=== PATIENT | male | born 1980 | race Caucasian/White ===

== ENCOUNTER 2019-02-10 22:23 | Emergency (ER) | payer SELFPAY ==
[~2019-02-10] VITALS: Ht 175.3 cm; Wt 59.0 kg
[2019-02-10 22:34] VITALS: BP 114/74
[2019-02-10] MEDS ORDERED: cefTRIAXone SOD 1,000 MG VL IM ONE (23:45)
[2019-02-10] MEDS ORDERED: ACETAMINOPHEN/CODEINE#3 (300/30mg) TAB PO ONE (23:45)
[2019-02-10] MEDS ORDERED: AMOXICILLIN/CLAVUL 875 MG TAB PO ONE (23:45)
[2019-02-10] MEDS ORDERED: methylPREDNISolone SOD SUCC 125 MG/2 ML VL IM ONE (23:45)
== END 2019-02-11 00:26 | disposition home or self-care (01) ==
LOC: ER 22:31
DX: K04.7 Periapical abscess without sinus (principal); F17.210 Nicotine dependence, cigarettes, uncomplicated
CPT/HCPCS: 96372; 99283; J0696; J2930

== ENCOUNTER 2021-08-17 17:12 | Emergency (ER) | payer MEDICAID ==
[~2021-08-17] VITALS: Ht 172.7 cm; Wt 61.2 kg
[2021-08-17 21:51] VITALS: BP 130/100
== END 2021-08-17 22:28 | disposition home or self-care (01) ==
LOC: ER 17:12
DX: K08.89 Other specified disorders of teeth and supporting structures (principal); F15.10 Other stimulant abuse, uncomplicated

== ENCOUNTER 2022-08-19 16:25 | Emergency (ER) | payer MEDICAID | END 2022-08-19 17:00 | disposition left against medical advice (07) | LOC: ER 16:25 | DX: R06.02 Shortness of breath (principal); Z53.21 Procedure and treatment not carried out due to patient leaving prior to being seen by health care provider ==

== ENCOUNTER 2023-08-14 23:41 | Inpatient (IN) | payer MEDICAID ==
[~2023-08-14] VITALS: Ht 160 cm; Wt 64.0 kg
[2023-08-15] VITALS (7 sets, daily range): BP systolic 120–122; BP diastolic 78–83; PULSE 75–95; RESP 12–21; TEMP 97.9–98.2; O2SAT 90–96
[2023-08-15] MEDS ORDERED: ALBUTEROL SULF 2.5 MG/0.5ML(0.5%) NEB SOLN ONE (00:13)
[2023-08-15] MEDS ORDERED: IPRATROPIUM BROM 0.5 MG/2.5ML INH SOL ONE (00:13)
[2023-08-15] MEDS ORDERED: IPRATROPIUM BROM 0.5 MG/2.5ML INH SOL NEB ONE (00:15)
[2023-08-15] MEDS ORDERED: ALBUTEROL SULF 2.5 MG/0.5ML(0.5%) NEB SOLN NEB ONE (00:15)
[2023-08-15] MEDS ORDERED: methylPREDNISolone SOD SUCC 125 MG/2 ML VL IM ONE (00:15)
[2023-08-15 01:01] LABS: Basophils # (auto) 0 10 ^3/uL (0-0.2); Eosinophils # (auto) 0 10 ^3/uL (0-0.8); Hemoglobin 12.3 g/dL (13.5-17.5); Monocytes # (auto) 0.9 10 ^3/uL (0-1.3); Neutrophils # (auto) 6.6 10 ^3/uL (1.6-8.6)
[2023-08-15 01:03] LABS: Basophils % (auto) 0.1 % (0.0-2.0); Hematocrit 36.4 % (41.0-53.0); Lymphocytes # (auto) 0.7 10 ^3/uL (0.4-5.4); Mean Corpuscular Hemoglobin 25.9 pg (28.0-32.0); Mean Corpuscular Hgb Conc. 33.8 g/dL (32.0-36.0); Mean Corpuscular Volume 76.5 fL (80.0-100.0); Monocytes % (auto) 10.9 % (0.0-12.0); Red Blood Cells 4.75 10^6/uL (4.5-5.90); Red Cell Distribution Width 14.4 % (11.8-14.3); White Blood Cell 8.1 10^3/uL (4.4-10.8)
[2023-08-15 01:33] LABS: Alanine Aminotransferase 15 U/L (7-40); Albumin 4.4 g/dL (3.2-4.8); Alkaline Phosphatase 93 U/L (46-116); Anion Gap 9 (5-15); Aspartate Aminotransferase 13 U/L (13-40); BUN/Creatinine Ratio 15.9 (10.0-20.0); Bilirubin, Total 0.5 mg/dL (0.2-1.0); Blood Urea Nitrogen 10 mg/dL (9-23); Carbon Dioxide 23 mmol/L (20-30); Chloride 99 mmol/L (98-107); Glucose 140 mg/dL (74-106); Potassium 3.5 mmol/L (3.5-5.1); Sodium 131 mmol/L (136-145); Total Protein 6.8 g/dL (5.7-8.2)
[2023-08-15 01:35] LABS: Partial Thromboplastin Time 60.7 SEC (24.5-34.5); Prothrombin Time 10.5 sec (9.3-11.8)
[2023-08-15] MEDS ORDERED: IOHEXOL 350 MG/ML 100ML IJ ONE (01:43)
[2023-08-15] MEDS ORDERED: ENOXAPARIN SOD 80 MG/0.8ML SYRINGE SC ONE (01:45)
[2023-08-15] MEDS ORDERED: IPRATROPIUM BROM 0.5 MG/2.5ML INH SOL NEB PRN (07:45)
[2023-08-15] MEDS ORDERED: ACETAMINOPHEN 325 MG TAB PO PRN (07:45)
[2023-08-15] MEDS ORDERED: ALBUTEROL SULF 2.5 MG/0.5ML(0.5%) NEB SOLN NEB PRN (07:45)
[2023-08-15] MEDS ORDERED: ONDANSETRON HCL 4 MG/2 ML VIAL IV PRN (07:45)
[2023-08-15] MEDS: cefTRIAXone 1GM/50ML D5W 50 ML IV SCH (10:13)
[2023-08-15] MEDS: AZITHROMYCIN 500MG/ 250ML 250 ML IV SCH (10:59)
[2023-08-15] MEDS ORDERED: LORazepam 2MG/ML-1ML VIAL IV ONE (13:45)
[2023-08-16] MEDS ORDERED: PROMETHAZINE HCL 25 MG/ML 1ML IV ONE ×2 (01:15→01:30)
[2023-08-16 05:00] VITALS: BP 139/83; PULSE 83; RESP 20; TEMP 97.9; O2SAT 100
[2023-08-16 06:08] LABS: Basophils # (auto) 0 10 ^3/uL (0-0.2); Eosinophils # (auto) 0 10 ^3/uL (0-0.8); Monocytes # (auto) 1.1 10 ^3/uL (0-1.3); Neutrophils # (auto) 7.1 10 ^3/uL (1.6-8.6); White Blood Cell 9.1 10^3/uL (4.4-10.8)
[2023-08-16 06:12] LABS: Basophils % (auto) 0.2 % (0.0-2.0); Hematocrit 38.3 % (41.0-53.0); Hemoglobin 13.1 g/dL (13.5-17.5); Lymphocytes # (auto) 0.9 10 ^3/uL (0.4-5.4); Lymphocytes % (auto) 10.2 % (10.0-50.0); Mean Corpuscular Hemoglobin 25.9 pg (28.0-32.0); Mean Corpuscular Hgb Conc. 34.3 g/dL (32.0-36.0); Mean Corpuscular Volume 75.7 fL (80.0-100.0); Monocytes % (auto) 12.1 % (0.0-12.0); Neutrophils % (auto) 77.5 % (37.0-80.0); Red Blood Cells 5.06 10^6/uL (4.5-5.90); Red Cell Distribution Width 14.5 % (11.8-14.3)
[2023-08-16 06:19] LABS: Chloride 100 mmol/L (98-107); Potassium 3.5 mmol/L (3.5-5.1); Sodium 139 mmol/L (136-145)
[2023-08-16 06:20] LABS: Anion Gap 13 (5-15); Calcium 9.9 mg/dL (8.5-10.1); Carbon Dioxide 26 mmol/L (20-30)
[2023-08-16 06:25] LABS: BUN/Creatinine Ratio 25.3 (10.0-20.0); Blood Urea Nitrogen 20 mg/dL (9-23); Glucose 138 mg/dL (74-106)
[2023-08-16 06:40] VITALS: O2SAT 94
[2023-08-16 08:00] VITALS: BP 129/75; PULSE 80; RESP 18; TEMP 98.1; O2SAT 95
[2023-08-16 08:30] VITALS: BP 114/50; PULSE 93; RESP 16; TEMP 98.2
[2023-08-16] MEDS: cefTRIAXone 1GM/50ML D5W 50 ML IV SCH (09:10)
[2023-08-16] MEDS: AZITHROMYCIN 500MG/ 250ML 250 ML IV SCH (10:01)
[2023-08-16] MEDS ORDERED: ALBUAER3 IN (11:09)
[2023-08-16] MEDS ORDERED: DOXY100C4 PO (11:09)
[2023-08-16 12:00] VITALS: BP 145/62; PULSE 72; RESP 18; TEMP 97.9; O2SAT 97
[2023-08-16 12:23] VITALS: BP 145/62; PULSE 72; RESP 18; TEMP 97.9; O2SAT 97
[2023-08-18 09:23] LABS: Hepatitis B Surface Antigen Negative (Negative)
[2023-08-18 11:39] LABS: Hepatitis C Antibody Reactive (Negative)
== END 2023-08-16 15:40 | disposition home or self-care (01) | DRG 137 ==
LOC: EDUNIT# 23:41 → ER 23:41 → EDBD 23:41 → OVERFLOW 08-15 07:38 → EAST 08-15 16:25
PROVIDERS: ADMIT Internal Medicine; ATTEND Internal Medicine
DX: J15.69 Pneumonia due to other Gram-negative bacteria (principal); J96.01 Acute respiratory failure with hypoxia; F17.210 Nicotine dependence, cigarettes, uncomplicated; R79.89 Other specified abnormal findings of blood chemistry; Z60.2 Problems related to living alone; J44.0 Chronic obstructive pulmonary disease with (acute) lower respiratory infection
CPT/HCPCS: 36415; 71275; 80048; 80053; 83880; 84484; 85025; 85379; 85610; 85730; 86803; 87340; 94640; 96372; 99291; G0378; J2405

== ENCOUNTER 2023-11-22 05:21 | Inpatient (IN) | payer MEDICAID ==
[~2023-11-22] VITALS: Ht 172.7 cm; Wt 77.1 kg
[~2023-11-22 05:21] MED LIST: ALBUAER3 IN; DOXY100C4 PO
[2023-11-22 05:53] LABS: Basophils # (auto) 0.1 10 ^3/uL (0-0.2); Basophils % (auto) 0.2 % (0.0-2.0); Eosinophils # (auto) 0 10 ^3/uL (0-0.8); Hematocrit 36.8 % (41.0-53.0); Lymphocytes # (auto) 0.8 10 ^3/uL (0.4-5.4); Lymphocytes % (auto) 2.4 % (10.0-50.0); Mean Corpuscular Hemoglobin 24.9 pg (28.0-32.0); Mean Corpuscular Hgb Conc. 32.6 g/dL (32.0-36.0); Mean Corpuscular Volume 76.5 fL (80.0-100.0); Monocytes # (auto) 1.7 10 ^3/uL (0-1.3); Monocytes % (auto) 5.3 % (0.0-12.0); Neutrophils # (auto) 29.8 10 ^3/uL (1.6-8.6); Neutrophils % (auto) 92.1 % (37.0-80.0); Red Cell Distribution Width 14.4 % (11.8-14.3)
[2023-11-22 05:57] LABS: White Blood Cell 32.4 10^3/uL (4.4-10.8)
[2023-11-22 05:58] LABS: Anion Gap 4 (5-15); Carbon Dioxide 28 mmol/L (20-30); Chloride 97 mmol/L (98-107); Potassium 4.2 mmol/L (3.5-5.1); Sodium 129 mmol/L (136-145)
[2023-11-22 05:59] LABS: Calcium 8.9 mg/dL (8.7-10.4)
[2023-11-22 06:00] VITALS: PULSE 90; RESP 23; O2SAT 98
[2023-11-22 06:04] LABS: BUN/Creatinine Ratio 18.4 (10.0-20.0); Blood Urea Nitrogen 14 mg/dL (9-23); Glucose 145 mg/dL (74-106)
[2023-11-22] MEDS: AZITHROMYCIN 250 MG TAB PO ONE (06:20)
[2023-11-22] MEDS: cefTRIAXone 1GM/50ML D5W 50 ML IV ONE (06:20)
[2023-11-22 07:30] VITALS: PULSE 90; RESP 20; O2SAT 98
[2023-11-22] MEDS ORDERED: DOCUSATE SOD 100 MG CAP PO PRN (09:45)
[2023-11-22] MEDS: SODIUM CHLORIDE 0.9% 1,000 ML IV SCH (10:04)
[2023-11-22 11:34] LABS: Rapid Influenza A Negative (Negative); Rapid Influenza B Negative (Negative)
[2023-11-22 11:35] LABS: COVID19 ANTIGEN SOFIA FIA NEGATIVE (NEGATIVE)
[2023-11-22 12:49] VITALS: PULSE 94; RESP 18; O2SAT 97
[2023-11-22] MEDS: ONDANSETRON HCL 4 MG/2 ML VIAL IV PRN (13:20)
[2023-11-22] MEDS: MORPHINE SULFATE INJ 2 MG/ml SYRG IV PRN (13:21)
[2023-11-22 16:35] VITALS: BP 124/86; PULSE 92; RESP 18; TEMP 98.7; O2SAT 96
[2023-11-22 20:00] VITALS: PULSE 72; RESP 18; TEMP 37.1; O2SAT 97
[2023-11-22 21:00] VITALS: BP 128/85; PULSE 74; RESP 18; TEMP 97.9; O2SAT 99
[2023-11-23 06:42] LABS: Red Cell Distribution Width 14.5 % (11.8-14.3)
[2023-11-23 06:44] LABS: Hematocrit 39.5 % (41.0-53.0); Hemoglobin 12.8 g/dL (13.5-17.5); Mean Corpuscular Volume 75.7 fL (80.0-100.0); Red Blood Cells 5.22 10^6/uL (4.5-5.90); White Blood Cell 28.3 10^3/uL (4.4-10.8)
[2023-11-23 06:45] LABS: Mean Corpuscular Hemoglobin 24.6 pg (28.0-32.0); Mean Corpuscular Hgb Conc. 32.4 g/dL (32.0-36.0)
[2023-11-23 06:55] LABS: Basophils % (manual) 0 (0.0-2.0); Blast Cells 0; Eosinophils % (manual) 0 (0-7); Metamyelocytes % 0; Myelocytes % 0; Promyelocytes % 0; Reactive Lymphocytes 0
[2023-11-23 07:21] LABS: Alanine Aminotransferase 12 U/L (7-40); Alkaline Phosphatase 113 U/L (46-116); Anion Gap 10 (5-15); BUN/Creatinine Ratio 23.4 (10.0-20.0); Blood Urea Nitrogen 18 mg/dL (9-23); Calcium 9.8 mg/dL (8.5-10.1); Carbon Dioxide 27 mmol/L (20-30); Chloride 97 mmol/L (98-107); Glucose 110 mg/dL (74-106); Potassium 4.2 mmol/L (3.5-5.1)
[2023-11-23 07:22] LABS: Albumin 4.4 g/dL (3.2-4.8); Aspartate Aminotransferase 24 U/L (13-40); Bilirubin, Total 0.5 mg/dL (0.2-1.0); Total Protein 7.1 g/dL (5.7-8.2)
[2023-11-23 07:25] LABS: Sodium 134 mmol/L (136-145)
[2023-11-23 08:00] VITALS: PULSE 82; RESP 18; O2SAT 97
[2023-11-23 08:30] VITALS: BP 120/82; PULSE 92; RESP 18; TEMP 98.2; O2SAT 96
[2023-11-23] MEDS: cefTRIAXone 1GM/50ML D5W 50 ML IV SCH (09:00)
[2023-11-23 09:23] LABS: Band Neutrophils % (manual) 11; Lymphocytes % (manual) 4 (10.0-50.0); Monocytes % (manual) 1 (0-12); Platelet Estimate Adequate
[2023-11-23] MEDS: AZITHROMYCIN 500MG/ 250ML 250 ML IV SCH (09:51)
[2023-11-23 12:30] VITALS: BP 136/88; PULSE 86; RESP 18; TEMP 98.4; O2SAT 96
[2023-11-23 16:35] VITALS: BP 127/82; PULSE 83; RESP 18; TEMP 98.3; O2SAT 96
[2023-11-24 01:00] VITALS: BP 125/76; PULSE 79; RESP 18; TEMP 98.5; O2SAT 95
[2023-11-24 05:00] VITALS: BP 109/72; PULSE 60; RESP 18; TEMP 99.1; O2SAT 93
[2023-11-24 07:29] LABS: Basophils # (auto) 0 10 ^3/uL (0-0.2); Basophils % (auto) 0.1 % (0.0-2.0); Eosinophils # (auto) 0 10 ^3/uL (0-0.8); Monocytes # (auto) 1.2 10 ^3/uL (0-1.3)
[2023-11-24 07:32] LABS: Hematocrit 37.5 % (41.0-53.0); Hemoglobin 11.8 g/dL (13.5-17.5); Lymphocytes # (auto) 1.1 10 ^3/uL (0.4-5.4); Lymphocytes % (auto) 6.1 % (10.0-50.0); Mean Corpuscular Hemoglobin 24.4 pg (28.0-32.0); Mean Corpuscular Hgb Conc. 31.5 g/dL (32.0-36.0); Mean Corpuscular Volume 77.3 fL (80.0-100.0); Monocytes % (auto) 6.8 % (0.0-12.0); Neutrophils # (auto) 15.1 10 ^3/uL (1.6-8.6); Nucleated Red Blood Cells % 0.1 %; Red Blood Cells 4.86 10^6/uL (4.5-5.90); Red Cell Distribution Width 14.4 % (11.8-14.3); White Blood Cell 17.4 10^3/uL (4.4-10.8)
[2023-11-24 08:10] VITALS: O2SAT 100
[2023-11-24 09:20] LABS: Hepatitis B Surface Antigen Negative (Negative)
[2023-11-24 09:38] VITALS: BP 125/73; PULSE 72; RESP 16; TEMP 98.5; O2SAT 100
[2023-11-24 11:39] LABS: Hepatitis C Antibody Reactive (Negative)
[2023-11-24 14:25] VITALS: BP 138/78; PULSE 67; RESP 17; TEMP 98.2; O2SAT 98
[2023-11-24 17:08] VITALS: BP 124/83; PULSE 61; RESP 18; TEMP 98.6; O2SAT 97
[2023-11-25 08:46] VITALS: BP 121/84; PULSE 65; RESP 18; TEMP 98.4; O2SAT 98
[2023-11-25 12:55] VITALS: BP 129/88; PULSE 79; RESP 20; TEMP 98.4; O2SAT 100
[2023-11-25 17:06] VITALS: BP 110/75; PULSE 67; RESP 20; TEMP 100.1; O2SAT 100
[2023-11-25] MEDS: ACETAMINOPHEN 325 MG TAB PO PRN (17:07)
[2023-11-25 18:07] VITALS: TEMP 99.1
== END 2023-11-26 06:45 | disposition left against medical advice (07) | DRG 720 ==
LOC: ER 05:21 → EDBD 05:21 → TELE-WESTW 10:22 → OVERFLOW 10:22 → TELE-WESTW 13:19
PROVIDERS: ADMIT Family Medicine; ATTEND Family Medicine
DX: A41.9 Sepsis, unspecified organism (principal); J96.01 Acute respiratory failure with hypoxia; G93.41 Metabolic encephalopathy; J15.9 Unspecified bacterial pneumonia; E87.1 Hypo-osmolality and hyponatremia; J18.9 Pneumonia, unspecified organism; D64.9 Anemia, unspecified; Z53.29 Procedure and treatment not carried out because of patient's decision for other reasons; Z20.822 Contact with and (suspected) exposure to COVID-19; B19.20 Unspecified viral hepatitis C without hepatic coma; F17.210 Nicotine dependence, cigarettes, uncomplicated; K82.8 Other specified diseases of gallbladder; F19.10 Other psychoactive substance abuse, uncomplicated; Z99.81 Dependence on supplemental oxygen; Z59.00 Homelessness unspecified
CPT/HCPCS: 36415; 71045; 76705; 80048; 80053; 80320; 83605; 83880; 83930; 84484; 85007; 85025; 85027; 86703; 86803; 87040; 87077; 87186; 87340; 87426; 87804; 93005; 99291; G0378; J2405

== ENCOUNTER 2025-08-01 08:56 | Inpatient (IN) | payer MEDICAID ==
[~2025-08-01] VITALS: Ht 177.8 cm; Wt 104.5 kg
--- NOTE | 2025-08-01 09:11 | ECG ---
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
--- NOTE | 2025-08-01 10:16 | ED.PDOC ---
SOB-HPI HPI Comments Patient JOHNSON with difficulty breathing. The patient reported experiencing difficulty breathing for the past three days. Patient is a poor historian. EMS report on the use standing and 94% room air. Denies any other symptoms at this time. Chief Complaint: Cough Time Seen by MD: 10:00 Primary Care Provider: NONE Reviewed notes: Nurses Notes, Medications, Allergies Information Source: Patient Mode of Arrival: EMS Severity: Moderate Timing: Days Duration: Since onset, Days Context: Spontaneous Onset PE Risk Factors: None History of: None Prehospital treatment: None Associated Signs and Symptoms: Cough Quality: Other (Unknown the patient has a poor historian) Radiation: Other If cough with SOB: Non-Productive Past Medical History PAST MEDICAL HISTORY: Denies Surgical History: Denies all surgeries Family History Family History: Reviewed,noncontributory to illness, Unknown Social History Smoker: Cigarettes Alcohol: Occasionally Drugs: Heroin, Marijuana Lives In: Homeless Constitutional: denies: chills, diaphoresis, fatigue, fever, malaise, sweats, weakness, others EENTM: denies: blurred vision, double vision, ear bleeding, ear discharge, ear drainage, ear pain, ear ringing, eye pain, eye redness, hearing loss, mouth pain, mouth swelling, nasal discharge, nose bleeding, nose congestion, nose pain, photophobia, tearing, throat pain, throat swelling, voice changes, others Respiratory: reports: cough, shortness of breath; denies: hemoptysis, orthopnea, SOB at rest, SOB with excertion, stridor, wheezing, others Cardiovascular: denies: chest pain, dizzy spells, diaphoresis, Dyspnea on exertion, edema, irregular heart beat, left arm pain, lightheadedness, palpitat ions, PND, syncope, others Gastrointestinal: denies: abdomen distended, abdominal pain, blood streaked bow els, constipated, diarrhea, dysphagia, difficulty swallowing, hematemesis, melena, nausea, poor appetite, poor fluid intake, rectal bleeding, rectal pain, vomiting, others Genitourinary: denies: burning, dysuria, flank pain, frequency, hematuria, incontinence, penile discharge, penile sore, pain, testicle pain, testicle swelling, urgency, others Neurological: denies: dizziness, fainting, headache, left sided numbness, left sided weakness, numbness, paresthesia, pre-existing deficit, right sided numbness, right sided weakness, seizure, speech problems, tingling, tremors, weakness, others Musculoskeletal: denies: back pain, gout, joint pain, joint swelling, muscle pain, muscle stiffness, neck pain, others Integumetry: denies: bruises, change in color, change in hair/nails, dryness, laceration, lesions, lumps, rash, wounds, others Allergic/Immunocompromised: denies: Difficulty Healing, Frequent Infections, Hives, Itching, others Hematologic/Lymphatic: denies: anemia, blood clots, easy bleeding, easy bruising, swollen glands, others Endocrine: denies: excessive hunger, excessive sweating, excessive thirst, excessive urination, flushing, intolerance to cold, intolerance to heat, unexplained weight gain, unexplained weight loss, others Psychiatric: denies: anxiety, bipolar disorder, depression, hopeless, panic disorder, schizophrenia, sleepless, suicidal, others All Other Systems: Reviewed and Negative Physical Exam Exam Comments Poor historian, no nasal flaring, hunched over, the no sternal retractions, lung sounds clear, no wheezing no rhonchi General Appearance: No Apparent Distress, Normal HEENT: Normal ENT Inspection, Pharynx Normal, TMs Normal Neck: Full Range of Motion, Non-Tender, Normal, Normal Inspection Respiratory: Chest Non-Tender, Lungs Clear, No Accessory Muscle Use, No Respiratory Distress, Normal Breath Sounds Cardiovascular: No Edema, No JVD, No Murmur, No Gallop, Normal Peripheral Pulses, Regular Rate/Rhythm Breast Exam: Deferred Gastrointestinal: No Organomegaly, Non Tender, No Pulsatile Mass, Normal Bowel Sounds, Soft Genitalia: Deferred Pelvic: Deferred Rectal: Deferred Extremities: No calf tenderness, Normal capillary refill, Normal inspection, Normal range of motion, Non-tender, No pedal edema Musculoskeletal : Apperance: Normal Neurologic: Alert, car servicer II-XII nml as Tested, No Motor Deficits, Normal Affect, Normal Mood, No Sensory Deficits Cerebellar Function: Normal Reflexes: Normal Skin: Dry, Normal Color, Warm Lymphatic: No Adenopathy EKG EKG : Pulse Rate (adult): 108 Sarepta: Normal Cardiac Rhythm: ST Block: None Hypertrophy: None ST: Normal Was a procedure done? Was a procedure done?: No Differential Dx Differential Diagnosis: Asthma, Bronchitis, CHF, COPD, Pneumonia, Sinusitis, URI X-Ray, Labs, Meds, VS Vital Signs Date Time Temp Pulse Resp B/P (MAP) Pulse Ox O2 Delivery O2 Flow Rate FiO2 08/01/25 13:36 97.4 121 12 150/89 (109) 92 97.4 08/01/25 10:16 108 08/01/25 09:00 97.9 101 18 111/77 94 97.9 08/01/25 08:58 108 Lab Test 08/01/25 12:49 08/01/25 11:46 Range/Units Troponin I High Sensitivity 3 L 3 L </=54 ng/L White Blood Count 16.7 H 4.4-10.8 10^3/uL Red Blood Count 5.56 4.5-5.90 10^6/uL Hemoglobin 13.7 13.5-17.5 g/dL Hematocrit 41.5 41.0-53.0 % Mean Corpuscular Volume 74.6 L 80.0-100.0 fL Mean Corpuscular Hemoglobin 24.7 L 28.0-32.0 pg Mean Corpuscular Hemoglobin Concent 33.1 32.0-36.0 g/dL Red Cell Distribution Width 14.6 H 11.8-14.3 % Platelet Count 228 140-450 10^3/uL Mean Platelet Volume 10.0 6.9-10.8 fL Neutrophils (%) (Auto) 37.0-80.0 % Lymphocytes (%) (Auto) 10.0-50.0 % Monocytes (%) (Auto) 0.0-12.0 % Basophils (%) (Auto) 0.0-2.0 % Neutrophils # (Auto) 1.6-8.6 10 ^3/uL Lymphocytes # (Auto) 0.4-5.4 10 ^3/uL Monocytes # (Auto) 0-1.3 10 ^3/uL Differential Total Cells Counted 100.0 100 Neutrophils % (Manual) 71 37.0-80.0 Band Neutrophils % (Manual) 20 Lymphocytes % (Manual) 3 L 10.0-50.0 Monocytes % (Manual) 6 0-12 Eosinophils % (Manual) 0 0-7 Basophils % (Manual) 0 0.0-2.0 Metamyelocytes % (manual) 0 Myelocytes % (Manual) 0 Promyelocytes % (Manual) 0 Blast Cells % (Manual) 0 Reactive Lymphocytes 0 Platelet Estimate Adequate Hypochromasia (manual) Slight Microcytosis Moderate Erythrocyte Sedimentation Rate 62 H 0-20 mm/hr D-Dimer, Quantitative 0.38 0.0-0.49 mg/L FEU Sodium Level 132 L 136-145 mmol/L Potassium Level 4.1 3.5-5.1 mmol/L Chloride Level 94 L 98-107 mmol/L Carbon Dioxide Level 25 20-31 mmol/L Anion Gap 13 5-15 Blood Urea Nitrogen 14 9-23 mg/dL Creatinine 0.80 0.700-1.30 mg/dL Glomerular Filtration Rate Calc 111 >90 mL/min BUN/Creatinine Ratio 17.5 10.0-20.0 Serum Glucose 105 74-106 mg/dL Lactic Acid Level 2.3 *H 0.4-2.0 mmol/L Calcium Level 10.2 8.7-10.4 mg/dL C-Reactive Protein High Sensitivity > 20.00 H <1.0 mg/dL B-Type Natriuretic Peptide 18.11 0-100 pg/mL Microbiology Date/Time Source Procedure Growth Status 08/01/25 11:54 Blood Blood Culture - Final Streptococcus pneumoniae Complete 08/01/25 11:46 Blood Blood Culture - Final Streptococcus pneumoniae Complete PATIENT: JERRI ELLISACCT: [id number]: [id number] : 1980 LOC: ER ROOM / BED: / AGE / SEX: 45 / M ADM STATUS: REG ER SERVICE [id number] ORDERING PHYSICIAN: NAY MURPHY NP PROCEDURE(s): CXR1 - CHEST XRAY 1 VIEW REASON: r/o pna ORDER NUMBER(s): [id number], ACCESSION NUMBER(s): [id number] CHEST RADIOGRAPH Indication: r/o pna Technique: Single frontal view of the chest was obtained Comparison: XY CHEST PORTABLE on DOS: 11/22/23, XY CHEST PORTABLE on DOS: 08/14/23 FINDINGS: Lines and Tubes: None Lungs/pleura: Right lung opacity concerning for pneumonia. Mild right base effusion. Additional differential of right lung opacity may reflect posterior layered pleural effusion or pleural-based malignancy. Consider CT if there is concern for neoplastic process No pneumothorax. Cardiomediastinal contours: Unremarkable Bones: No acute osseous abnormality. IMPRESSION: Right lung opacity concerning for pneumonia. Mild right base effusion. Additional differential of right lung opacity may reflect posterior layere d pleural effusion or pleural-based malignancy. Consider CT if there is concern for neoplastic process. ATED BY: DAVID VALENCIA MD DICTATED DATE/TIME: 08/01/25 105 SIGNED BY: DAVID VALENCIA MD SIGNED DATE/TIME: 08/01/25 105 CC: X-Ray, Labs, Meds, VS Comment Patient arrives alert and oriented, ABC's intact, afebrile, vital signs stable, saturating 91% on room air Peripheral IV insertion+ labs were ordered. CBC was ordered to exclude anemia, blood loss, or infection. BMP was ordered to exclude electrolyte abnormalities, renal failure, dehydration, hyperglycemia Troponin and BNP were ordered to rule out myocardial infarction, or congestive heart failure. Blood cultures, D-dimer, lactic acid were ordered The primary concern was the patient's difficulty breathing. Potential causes for dyspnea could include respiratory infections, asthma, chronic obstructive pulmonary disease (COPD), or heart-related issues. The normal EKG results suggested that a cardiac cause was less likely, although it did not rule out all potential heart-related problems. Further assessment would be necessary to determine the exact cause of the breathing difficulty. Patients work up was remarkable for acute hypoximia CXR: IMPRESSION: Right lung opacity concerning for pneumonia. Mild right base effusion. Additional differential of right lung opacity may reflect posterior layere d pleural effusion or pleural-based malignancy. Consider CT if there is concern for neoplastic process. The patient's workup reveals that the patient needs further evaluation and/or treatment for the above medical conditions. Patient verbalized understanding of the above and is awaiting further evaluation by the admitting service. Time of 1ST Reevaluation: 10:30 Reevaluation 1ST: Unchanged Patient Education/Counseling: Diagnosis, Treatment, Prognosis Family Education/Counseling: No Family Present SEPSIS Sepsis Screen Date sepsis recognized/suspect: Aug 01, 2025 Time Sepsis recognized/suspect: 902 Recent Procedure: No On Antibiotic Therapy: No Respiratory Rate >20: No Heart Rate >90: Yes Temp<36 C (96.8 F) or >38.3 C: No SBP <90 or MAP <65 mmHG: No New Acute Mental Status Change: No Is the patient on CPAP, BIPAP,: No Physician Orders Electrocardigram (08/01/25 09:09) Chest Xray 1 View (08/01/25 09:58) Vital Signs Date Time Temp Pulse Resp B/P (MAP) Pulse Ox O2 Delivery O2 Flow Rate FiO2 08/01/25 13:36 97.4 121 12 150/89 (109) 92 97.4 08/01/25 10:16 108 08/01/25 09:00 97.9 101 18 111/77 94 97.9 08/01/25 08:58 108 Laboratory Tests Test 08/01/25 11:46 Lactic Acid Level 2.3 mmol/L (0.4-2.0) *H White Blood Count 16.7 10^3/uL (4.4-10.8) H Departure 1 Departure Time of Disposition: 11:57 Impression: Primary Impression: Acute hypoxemic respiratory failure Additional Impression: Right lower lobe pneumonia Qualified Codes: J18.9 - Pneumonia, unspecified organism Disposition: ADMITTED INPATIENT Condition: Serious Critical Care Note Critical Care Time?: No Stability Stability form required: No Heart Score Heart Score: Heart Score Response (Comments) Value History N/A 0 EKG N/A 0 Age N/A 0 Risk Factors N/A 0 Troponin N/A 0 Total 0 I personally scribed for NAY MURPHY STRUCTURAL ENGINEERING DRAFTING OFFICER (MANAVOMA) on 08/01/25 at 10:16. Electronically submitted by Donato Bravo ([employer]). I personally scribed for NAY MURPHY STRUCTURAL ENGINEERING DRAFTING OFFICER ([email or web address]) on 08/01/25 at 10:16. Electronically submitted by Donato Bravo ([employer]). NAY MURPHY STRUCTURAL ENGINEERING DRAFTING OFFICER Aug 01, 2025 10:16
--- NOTE | 2025-08-01 11:00 | DVH ---
CHEST RADIOGRAPH Indication: r/o pna Technique: Single frontal view of the chest was obtained Comparison: XY CHEST PORTABLE on DOS: 11/22/23, XY CHEST PORTABLE on DOS: 08/14/23 FINDINGS: Lines and Tubes: None Lungs/pleura: Right lung opacity concerning for pneumonia. Mild right base effusion. Additional differential of right lung opacity may reflect posterior layered pleural effusion or pleural-based malignancy. Consider CT if there is concern for neoplastic process No pneumothorax. Cardiomediastinal contours: Unremarkable Bones: No acute osseous abnormality. IMPRESSION: Right lung opacity concerning for pneumonia. Mild right base effusion. Additional differential of right lung opacity may reflect posterior layere d pleural effusion or pleural-based malignancy. Consider CT if there is concern for neoplastic process.
[2025-08-01 12:24] LABS: Hemoglobin 13.7 g/dL (13.5-17.5)
[2025-08-01 12:25] LABS: Hematocrit 41.5 % (41.0-53.0); Mean Corpuscular Hemoglobin 24.7 pg (28.0-32.0); Mean Corpuscular Volume 74.6 fL (80.0-100.0)
[2025-08-01 12:40] LABS: Lactic Acid w/Reflex 2.3 mmol/L (0.4-2.0)
[2025-08-01 12:49] LABS: Total Cells Counted 100.0 (100)
[2025-08-01 13:46] LABS: Potassium 4.1 mmol/L (3.5-5.1)
[2025-08-01 13:47] LABS: Anion Gap 13 (5-15); Carbon Dioxide 25 mmol/L (20-31)
[2025-08-01 13:48] LABS: Calcium 10.2 mg/dL (8.7-10.4); Chloride 94 mmol/L (98-107); Sodium 132 mmol/L (136-145)
[2025-08-01 13:52] LABS: BUN/Creatinine Ratio 17.5 (10.0-20.0); Blood Urea Nitrogen 14 mg/dL (9-23); Glucose 105 mg/dL (74-106)
[2025-08-01] MEDS ORDERED: ACETAMINOPHEN 325 MG TAB PO PRN (14:00)
[2025-08-01] MEDS ORDERED: DOCUSATE SOD 100 MG CAP PO PRN (14:00)
[2025-08-01] MEDS ORDERED: ALBUTEROL SULF 2.5 MG/0.5ML(0.5%) NEB SOLN NEB PRN (14:15)
[2025-08-01] MEDS ORDERED: IPRATROPIUM BROM 0.5 MG/2.5ML INH SOL NEB PRN (14:15)
[2025-08-01] MEDS: AZITHROMYCIN 500MG/250ML 250 ML IV ONE (14:29)
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
[2025-08-01] MEDS: SODIUM CHLORIDE 0.9% 2,200 ML IV ONE (15:26)
[2025-08-01 15:31] VITALS: BP 150/89; PULSE 121; RESP 12; TEMP 97.4; O2SAT 92
[2025-08-01 19:28] VITALS: O2SAT 96
[2025-08-01 20:03] VITALS: PULSE 113; RESP 18; O2SAT 96
[2025-08-01 21:00] VITALS: BP 132/84; PULSE 109; RESP 18; TEMP 98; O2SAT 97
[2025-08-01 23:02] VITALS: PULSE 98; RESP 18; O2SAT 97
[2025-08-01 23:03] VITALS: BP 132/84; PULSE 109; RESP 18; TEMP 98; O2SAT 97
[2025-08-01] MEDS: ONDANSETRON HCL 4 MG/2 ML VIAL IV PRN (23:04)
[2025-08-01] MEDS: HYDROcodone-ACET 5/325MG TAB PO PRN (23:04)
[2025-08-02] VITALS (11 sets, daily range): BP systolic 122–159; BP diastolic 78–90; PULSE 20–112; RESP 16–20; TEMP 97.4–98.5; O2SAT 94–100
[2025-08-02 01:37] LABS: Urine Protein, UAD 2+ (Negative)
[2025-08-02 02:11] LABS: Cannabinoid Screen, Urine Pos (NEGATIVE)
[2025-08-02 02:14] LABS: Amphetamine Screen, Urine Pos (NEGATIVE); Barbiturate Scree,Urine Neg (NEGATIVE); Benzodiazephine Screen, Urine Pos (NEGATIVE); Cocaine Screen, Urine Neg (NEGATIVE); Phencyclidine Screen, Urine Neg (NEGATIVE)
[2025-08-02] MEDS ORDERED: VANCOMYCIN 1.75GM/350ML 350 ML IV ONE (03:30)
[2025-08-02] MEDS ORDERED: VANCOMYCIN PER PHARMACY 0 MG IV SCH (03:30)
[2025-08-02 03:44] LABS: Opiate Scree,Urine Neg (NEGATIVE)
[2025-08-02] MEDS ORDERED: VANCOMYCIN 1.25GM/250ML 250 ML IV ONE (03:45)
[2025-08-02] MEDS: VANCOMYCIN 1.25GM/250ML 250 ML IV ONE (03:50)
[2025-08-02] MEDS: VANCOMYCIN 500mg/100mL 100 ML IV ONE (05:14)
[2025-08-02 05:21] LABS: Hemoglobin 11.6 g/dL (13.5-17.5)
[2025-08-02 05:23] LABS: Hematocrit 35.2 % (41.0-53.0); Mean Corpuscular Hemoglobin 24.8 pg (28.0-32.0); Mean Corpuscular Volume 75.3 fL (80.0-100.0); Nucleated Red Blood Cells % 0.1 %
[2025-08-02 05:29] LABS: Alanine Aminotransferase 17 U/L (7-40); Albumin 4.0 g/dL (3.2-4.8); Alkaline Phosphatase 96 U/L (46-116); Anion Gap 10 (5-15); BUN/Creatinine Ratio 22.4 (10.0-20.0); Bilirubin, Total 0.7 mg/dL (0.2-1.0); Blood Urea Nitrogen 15 mg/dL (9-23); Calcium 9.1 mg/dL (8.7-10.4); Carbon Dioxide 26 mmol/L (20-31); Total Protein 6.6 g/dL (5.7-8.2)
[2025-08-02 05:34] LABS: Chloride 97 mmol/L (98-107); Glucose 128 mg/dL (74-106); Potassium 3.5 mmol/L (3.5-5.1); Sodium 133 mmol/L (136-145)
[2025-08-02] MEDS ORDERED: AZITHROMYCIN 500MG/250ML 250 ML IV SCH (10:00)
--- NOTE | 2025-08-02 10:50 | DVHPN2 ---
Subjective Patient encephalopathic Reviewed: Care Plan, H&P, Labs, Medications Changes from previous H/P or p: No Changes General: Per HPI Eyes: No Pain, No Vision change, No Conjunctivae inflammation, No Eyelid inflammation, No Other, No Redness ENT: No Ear pain, No Ear discharge, No Nose pain, No Nose discharge, No Nose congestion, No Mouth pain, No Mouth swelling, No Throat pain, No Throat swelling, No Other Cardiovascular: Chest Pain; No Palpitations, No Orthopnea, No Paroxysmal Noc. Dyspnea, No Edema, No Lt Headedness, No Other Respiratory: Cough; No Dry; Shortness of breath, SOB with excertion, Wheezing; No Hemoptysis, No Pleuritic Pain, No Sputum, No Other Gastrointestinal: No Nausea, No Vomiting, No Abdominal Pain, No Diarrhea, No Constipation, No Melena, No Hematochezia, No Other Genitourinary: No Dysuria, No Frequency, No Incontinence, No Hematuria, No Retention, No Other Musculoskeletal: No other, No neck pain, No shoulder pain, No arm pain, No back pain, No hand pain, No leg pain, No foot pain Skin: No Rash, No Lesions, No Jaundice, No Bruising, No Other Objective Vitals Vital Signs Date Time Temp Pulse Resp B/P (MAP) Pulse Ox O2 Delivery O2 Flow Rate FiO2 08/02/25 07:12 98 Nasal Cannula* 2 28 08/02/25 05:00 98.4 99 17 122/78 (93) 98.4 Intake/Output Intake and Output 08/02/25 07:00 Intake Total 150 ml Output Total 300 ml Balance -150 ml Intake Oral 100 ml IV Total 50 ml Output Urine Total 300 ml General Appearance: Alert, Oriented X3, Cooperative, mild distress, Other (Unkempt) HEENT: Atraumatic, PERRLA Lungs: Other (Decreased breath sounds to right lung) Cardiovascular: Normal S1, Normal S2 Abdomen: Normal bowel sounds, Soft, No tenderness, No hepatospenomegaly Genitourinary: No Apparent Abnormalities Musculoskeletal: Normal sensory function, Normal motor function Psych/Mental Status: Mental status NL (Withdrawn), Mood NL (Agitated) Medications Current Medications Medications Dose Ordered Sig/Alexis Route Start Time Stop Time Status Last Admin Dose Admin Acetaminophen/ Hydrocodone Bitart 1 tab Q4HP PRN PO 08/01/25 14:00 08/01/25 23:04 1 TAB Ondansetron HCl 4 mg Q4HP PRN IV 08/01/25 14:00 08/02/25 09:44 4 MG Docusate Sodium 100 mg BIDPRN PRN PO 08/01/25 14:00 Acetaminophen 650 mg Q6HP PRN PO 08/01/25 14:00 Vancomycin HCl 0 ml @ 0 mls/hr PER PHARMACY IV 08/02/25 03:30 Vancomycin HCl 250 ml @ 200 mls/hr Q8H IV 08/02/25 13:00 Albuterol 2.5 mg Q6HWA [facility] 08/02/25 12:00 UNV Ipratropium [place] 0.5 mg Q6HWA [facility] 08/02/25 12:00 UNV Cefepime HCl 50 ml @ 12.5 mls/hr Q8HR IV 08/02/25 14:00 UNV Lorazepam 1 mg Q6HP PRN IV 08/02/25 10:45 UNV Laboratory Results Laboratory Tests 08/02/25 04:32 Chemistry Test 08/01/25 11:46 08/02/25 04:32 Calcium Level 10.2 mg/dL (8.7-10.4) 9.1 mg/dL (8.7-10.4) Albumin 4.0 g/dL (3.2-4.8) Total Protein 6.6 g/dL (5.7-8.2) Coagulation Test 08/01/25 11:46 D-Dimer, Quantitative 0.38 mg/L FEU (0.0-0.49) Cardiac Markers Test 08/01/25 11:46 B-Type Natriuretic Peptide 18.11 pg/mL (0-100) LFT Test 08/02/25 04:32 Alanine Aminotransferase (ALT) 17 U/L (7-40) Alkaline Phosphatase 96 U/L (46-116) Aspartate Amino Transferase (AST) 21 U/L (13-40) Total Bilirubin 0.7 mg/dL (0.2-1.0) Urinalysis Test 08/02/25 00:27 Urine Color Yellow (Yellow) Urine Clarity Clear (Clear) Urine pH 6.5 (5.0-9.0) Urine Specific [place] 1.032 (1.001-1.035) Urine Protein 2+ (Negative) H Urine Ketones 1+ (Negative) H Urine Blood 1+ /uL (Negative) H Urine Nitrite Negative (Negative) Urine Bilirubin Negative (Negative) Urine Urobilinogen 3 mg/dL (Negative) H Urine Leukocyte Esterase Negative /uL (Negative) Urine RBC None seen /hpf (0 - 3) Urine Microscopic WBC 1 /HPF (0-3) Urine Squamous Epithelial Cells None seen /hpf (<5) Urine Bacteria None seen /hpf (None Seen) Urine Mucus Few (None Seen) Urine Glucose Normal mg/dL (Normal) Microbiology Microbiology Date/Time Source Procedure Growth Status 08/01/25 11:54 Blood Blood Culture - Preliminary Resulted Labs and/or images reviewed: Labs reviewed by me, Image(s) reviewed by me Assessment/Plan Assessment/Plan Impression: -sepsis -Gram-positive cocci in blood -community-acquired pneumonia, right lung, probable Gram-positive etiology -polysubstance abuse -toxic metabolic encephalopathy -homelessness -rule out lung abscess -rule out endocarditis Plan: -change antibiotic therapy to cefepime and vancomycin -guzman cultures -CT scan of the chest -lorazepam p.r.n. anxiety/agitation -echocardiogram -social service consultation for DC planning -repeat labs, chest x-ray in a.m. Total time spent with patient discussing and formulating plan of care: 35 minutes. This medical document was created using an electronic medical record system with [employer] dictation system. Although this document has been carefully reviewed, there may still be some phonetic and typographical errors. These areas are purely typographical due to imperfections of the software programs, and do not reflect any compromise in the patient's medical care. Plan discussed with: Patient, Other (RN) My Orders Orders - FLORI DUPONT [employer] Procedure Category Date Status Time Albuterol Medneb PHA 08/02/25 Logged (Ventolin Medneb) 12:00 Ipratropium Medneb PHA 08/02/25 Logged (Atrovent Medneb) 12:[address] 08/02/25 Logged 10:36 Cefepime 2gm/50ml Ns PHA 08/02/25 Logged (Maxipime 2gm/50ml) 14:00 Lorazepam 2mg/Ml Inj PHA 08/02/25 Logged (Ativan Inj) 10:45 Echo 2d Mode Cardiac US 08/02/25 Logged DOP 10:36 Basic Metabolic Panel LAB 08/03/25 Verified 05:00 Basic Metabolic Panel LAB 08/04/25 Verified 05:00 Basic Metabolic Panel LAB 08/05/25 Verified 05:00 Complete Blood Count LAB 08/03/25 Verified 05:00 Complete Blood Count LAB 08/04/25 Verified 05:00 Complete Blood Count LAB 08/05/25 Verified 05:00 Date of Service: Aug 02, 2025 Billing Provider: FLORI DUPONT NP Common Visit Codes: [id number] INP/OBS CARE(HIGH) FLORI DUPONT NP Aug 02, 2025 10:50
[2025-08-02] MEDS: VANCOMYCIN 1.25GM/250ML 250 ML IV SCH (13:16)
--- NOTE | 2025-08-02 14:52 | DVH ---
EXAM: CT CHEST WITHOUT CONTRAST Reason for study/Clinical History: right sided pna, rule out abscess Comparison Study: XY CHEST XRAY 1 VIEW on DOS: 08/01/25. CT 08/15/2023. Exam Date: 08/02/2025 01:00 PM TECHNIQUE: Multidetector CT of the chest was performed from the lung apices to the upper abdomen without the use of intravenous contract. Axial, coronal and sagittal multiplanar reformats were performed. Radiation Dose Information: CT Dose: CTDI volume is 5.24 mGy. Dose-length product is 228.44 mGy*cm The dose indicators for CT are the volume Computed Tomography (CT) Dose Index (CTDIvol) and the Dose Length Product (DLP), and are measured in units of mGy and mGy-cm, respectively. These indicators are not patient dose, but values generated from the CT scanner acquisition factors. The report includes radiation exposure data for exposures received during this examination. FINDINGS: Lower neck: Unremarkable. Lungs and Pleura: Right upper lobe airspace consolidation with air bronchograms. Trace right pleural effusion. Lymph nodes: Enlarged mediastinal lymph nodes including 11 mm right paratracheal lymph node. Cardiovascular and Mediastinum: No significant pericardial effusion. Scattered coronary calcifications. Osseous and soft tissues: No suspicious osseous lesions. Upper abdomen: No acute abnormality in the visualized upper abdomen. IMPRESSION: Findings suspicious for right upper lobe pneumonia. No definite pulmonary abscess although its evaluation is limited on this noncontrast study. Recommend short-term follow-up radiograph/CT after symptom improves to ensure resolution of the opacities and exclude underlying mass.
[2025-08-02] MEDS: CEFEPIME 2GM/50ML NS 50 ML IV SCH (14:56)
[2025-08-02] MEDS: ALBUTEROL SULF 2.5 MG/0.5ML(0.5%) NEB SOLN NEB SCH (19:01)
[2025-08-02] MEDS: IPRATROPIUM BROM 0.5 MG/2.5ML INH SOL NEB SCH (19:01)
[2025-08-03] VITALS (10 sets, daily range): BP systolic 119–133; BP diastolic 74–88; PULSE 62–103; RESP 17–18; TEMP 98–99; O2SAT 97–100
[2025-08-03] MEDS: LORazepam 2MG/ML-1ML VIAL IV PRN (03:04)
[2025-08-03 05:05] LABS: Hematocrit 35.2 % (41.0-53.0); Hemoglobin 11.7 g/dL (13.5-17.5); Mean Corpuscular Hemoglobin 24.9 pg (28.0-32.0); Mean Corpuscular Volume 75.1 fL (80.0-100.0); Nucleated Red Blood Cells % 0.1 %
[2025-08-03 05:14] LABS: Sodium 136 mmol/L (136-145)
[2025-08-03 05:15] LABS: Anion Gap 12 (5-15); Calcium 8.8 mg/dL (8.7-10.4); Carbon Dioxide 26 mmol/L (20-31)
[2025-08-03 05:20] LABS: BUN/Creatinine Ratio 28.8 (10.0-20.0); Blood Urea Nitrogen 19 mg/dL (9-23)
[2025-08-03 05:24] LABS: Chloride 98 mmol/L (98-107); Glucose 114 mg/dL (74-106); Potassium 3.5 mmol/L (3.5-5.1)
--- NOTE | 2025-08-03 14:17 | DVHPN2 ---
Subjective Patient report nausea and vomiting Reviewed: Care Plan, H&P, Labs, Medications Changes from previous H/P or p: Changes General: Per HPI Eyes: No Pain, No Vision change, No Conjunctivae inflammation, No Eyelid inflammation, No Other, No Redness ENT: No Ear pain, No Ear discharge, No Nose pain, No Nose discharge, No Nose congestion, No Mouth pain, No Mouth swelling, No Throat pain, No Throat swelling, No Other Cardiovascular: Chest Pain; No Palpitations, No Orthopnea, No Paroxysmal Noc. Dyspnea, No Edema, No Lt Headedness, No Other Respiratory: Cough; No Dry; Shortness of breath, SOB with excertion, Wheezing; No Hemoptysis, No Pleuritic Pain, No Sputum, No Other Gastrointestinal: No Nausea, No Vomiting, No Abdominal Pain, No Diarrhea, No Constipation, No Melena, No Hematochezia, No Other Genitourinary: No Dysuria, No Frequency, No Incontinence, No Hematuria, No Retention, No Other Musculoskeletal: No other, No neck pain, No shoulder pain, No arm pain, No back pain, No hand pain, No leg pain, No foot pain Skin: No Rash, No Lesions, No Jaundice, No Bruising, No Other Objective Vitals Vital Signs Date Time Temp Pulse Resp B/P (MAP) Pulse Ox O2 Delivery O2 Flow Rate FiO2 08/03/25 14:06 98 Room Air 0.0 08/03/25 14:06 21 08/03/25 13:00 98.5 70 17 130/82 (98) 98.5 Intake/Output Intake and Output 08/03/25 07:00 Intake Total 1330 ml Output Total 600 ml Balance 730 ml Intake Oral 1030 ml IV Total 300 ml Output Urine Total 600 ml # Voids 1 # Bowel Movements 1 General Appearance: Alert, Oriented X3, Cooperative, mild distress, Other (Unkempt) HEENT: Atraumatic, PERRLA Lungs: Other (Decreased breath sounds to right lung) Cardiovascular: Normal S1, Normal S2 Abdomen: Normal bowel sounds, Soft, No tenderness, No hepatospenomegaly Genitourinary: No Apparent Abnormalities Musculoskeletal: Normal sensory function, Normal motor function Skin: Dry, Intact Psych/Mental Status: Mental status NL (Withdrawn), Mood NL (Agitated) Medications Current Medications Medications Dose Ordered Sig/Alexis Route Start Time Stop Time Status Last Admin Dose Admin Acetaminophen/ Hydrocodone Bitart 1 tab Q4HP PRN PO 08/01/25 14:00 08/03/25 06:32 1 TAB Ondansetron HCl 4 mg Q4HP PRN IV 08/01/25 14:00 08/03/25 13:51 4 MG Docusate Sodium 100 mg BIDPRN PRN PO 08/01/25 14:00 Acetaminophen 650 mg Q6HP PRN PO 08/01/25 14:00 Vancomycin HCl 0 ml @ 0 mls/hr PER PHARMACY IV 08/02/25 03:30 Vancomycin HCl 250 ml @ 200 mls/hr Q8H IV 08/02/25 13:00 08/03/25 13:51 200 MLS/HR Albuterol 2.5 mg Q6HWA [facility] 08/02/25 12:00 08/02/25 19:01 2.5 MG Ipratropium [place] 0.5 mg Q6HWA [facility] 08/02/25 12:00 08/02/25 19:01 0.5 MG Cefepime HCl 50 ml @ 12.5 mls/hr Q8HR IV 08/02/25 14:00 08/03/25 06:00 12.5 MLS/HR Lorazepam 1 mg Q6HP PRN IV 08/02/25 10:45 08/03/25 03:04 1 MG Sodium Chloride 1,000 ml @ 75 mls/hr [id number] IV 08/03/25 14:15 UNV Laboratory Results Laboratory Tests 08/03/25 04:29 Chemistry Test 08/03/25 04:29 Calcium Level 8.8 mg/dL (8.7-10.4) Urinalysis Test 08/02/25 00:27 Urine Color Yellow (Yellow) Urine Clarity Clear (Clear) Urine pH 6.5 (5.0-9.0) Urine Specific [place] 1.032 (1.001-1.035) Urine Protein 2+ (Negative) H Urine Ketones 1+ (Negative) H Urine Blood 1+ /uL (Negative) H Urine Nitrite Negative (Negative) Urine Bilirubin Negative (Negative) Urine Urobilinogen 3 mg/dL (Negative) H Urine Leukocyte Esterase Negative /uL (Negative) Urine RBC None seen /hpf (0 - 3) Urine Microscopic WBC 1 /HPF (0-3) Urine Squamous Epithelial Cells None seen /hpf (<5) Urine Bacteria None seen /hpf (None Seen) Urine Mucus Few (None Seen) Urine Glucose Normal mg/dL (Normal) Microbiology Microbiology Date/Time Source Procedure Growth Status 08/02/25 00:27 Voided Urine Urine Culture - Preliminary No growth Resulted 08/01/25 11:54 Blood Blood Culture - Preliminary Resulted Labs and/or images reviewed: Labs reviewed by me, Image(s) reviewed by me Assessment/Plan Assessment/Plan Impression: -sepsis -Gram-positive cocci in blood -community-acquired pneumonia, right lung, probable Gram-positive etiology -polysubstance abuse -toxic metabolic encephalopathy -homelessness -rule out lung abscess -rule out endocarditis Plan: Events: CT scan of the chest reveals probable aspiration pneumonia with right upper and middle lobe opacities. -guzman cultures -antiemetics -gentle IV hydration -continue vancomycin and cefepime -lorazepam p.r.n. anxiety/agitation -echocardiogram: Pending -social service consultation for DC planning -repeat labs, chest x-ray in a.m. Total time spent with patient discussing and formulating plan of care: 35 minutes. This medical document was created using an electronic medical record system with [employer] dictation system. Although this document has been carefully reviewed, there may still be some phonetic and typographical errors. These areas are purely typographical due to imperfections of the software programs, and do not reflect any compromise in the patient's medical care. Plan discussed with: Patient, Other (RN) My Orders Orders - FLORI DUPONT NP Procedure Category Date Status Time NS PHA 08/03/25 Transmitted 14:15 Multiple Vitamin W PHA 08/03/25 Verified Mineral Tab (Mvi W/ M 14:15 Date of Service: Aug 03, 2025 Billing Provider: FLORI DUPONT NP Common Visit Codes: [id number] INP/OBS CARE(HIGH) FLORI DUPONT NP Aug 03, 2025 14:16
[2025-08-03] MEDS: MULTIPLE VITAMINS W/ MINERALS TAB PO SCH (16:18)
[2025-08-03] MEDS: SODIUM CHLORIDE 0.9% 1,000 ML IV SCH (16:18)
--- NOTE | 2025-08-03 17:53 | DVHSR ---
APPROVED REPORT EXAM: Two-dimensional and M-mode echocardiogram with Doppler and color Doppler. Blood Pressure: 122/78 mmHg INDICATION Dyspnea Positive blood culture Rule out endocarditis RISK FACTORS Height: 5'10", Weight: 156 DIMENSIONS LVDd 4.9 (3.8-5.7cm) LA (2D) 3.7 (1.9-4.0cm) Aortic Root 3.7 (2.0-3.7cm) LVDs 3.7 (2.5-4.0cm) LA (MM) (1.9-4.0cm) Aortic Cusp Exc 1.9 (1.5-2.0cm) EF (%) 50.0 (55-70%) Rt. Atrium 3.4 (1.9-4.0cm) Asc. Aorta cm IVSd 0.9 (0.7-1.1cm) RV (D) (1.8-2.4cm) PWd 0.9 (0.7-1.1cm) Mitral Valve Mitral Mitral Stenosis E wave 0.80m/s MV Mean GR. mmHg A wave 0.61m/s MV Peak GR. mmHg E/A ratio 1.3 2D MVA cm2 DECEL Time 210ms PRESS 1/2 Time ms Aortic Valve Aortic Valve Aortic Stenosis V1 0.88m/s AO Mean GR. 4mmHg V2 1.22m/s AO Peak GR. 6mmHg LVOT Diameter 2.1 (1.8-2.4cm) Doppler GENET 2.50cm2 Other Information Quality : Technically Limited Rhythm : Conclusion LVEF borderline at 45-50%, right ventricle size and function normal Anya and tricuspid valves grossly normal. Pulmonary valve not visualized Aortic valve not well visualized, leaflets appear mildly thickened .
[2025-08-04 01:29] VITALS: BP 150/80; PULSE 69; RESP 18; TEMP 98.3; O2SAT 100
[2025-08-04 05:17] LABS: Hemoglobin 12.4 g/dL (13.5-17.5)
[2025-08-04 05:19] LABS: Hematocrit 36.0 % (41.0-53.0); Mean Corpuscular Hemoglobin 25.7 pg (28.0-32.0); Mean Corpuscular Volume 74.6 fL (80.0-100.0); Nucleated Red Blood Cells % 0.1 %
[2025-08-04 05:26] LABS: Chloride 99 mmol/L (98-107); Potassium 4.0 mmol/L (3.5-5.1); Sodium 137 mmol/L (136-145)
[2025-08-04 05:27] LABS: Anion Gap 8 (5-15); Carbon Dioxide 30 mmol/L (20-31)
[2025-08-04 05:28] LABS: Calcium 9.1 mg/dL (8.7-10.4)
[2025-08-04 05:33] LABS: BUN/Creatinine Ratio 23.5 (10.0-20.0); Blood Urea Nitrogen 16 mg/dL (9-23)
[2025-08-04 05:34] LABS: Glucose 112 mg/dL (74-106)
== END 2025-08-04 06:30 | disposition left against medical advice (07) | DRG 720 ==
LOC: EDUNIT# 08:56 → EDBD 08:56 → ER 08:56 → OVERFLOW 13:53 → WEST WING 21:08
PROVIDERS: ADMIT Nurse Practitioner Acute Care; ATTEND Nurse Practitioner Acute Care
DX: A41.9 Sepsis, unspecified organism (principal); G92.8 Other toxic encephalopathy; J85.1 Abscess of lung with pneumonia; J96.01 Acute respiratory failure with hypoxia; I38 Endocarditis, valve unspecified; J69.0 Pneumonitis due to inhalation of food and vomit; J15.9 Unspecified bacterial pneumonia; F19.10 Other psychoactive substance abuse, uncomplicated; Z59.00 Homelessness unspecified; F17.210 Nicotine dependence, cigarettes, uncomplicated; B15.9 Hepatitis A without hepatic coma; Z53.29 Procedure and treatment not carried out because of patient's decision for other reasons
CPT/HCPCS: 36415; 71045; 71250; 80048; 80053; 80202; 80307; 81001; 83605; 83880; 84484; 85007; 85025; 85027; 85379; 85652; 86141; 87040; 87077; 87086; 87186; 93005; 93306; 94640; 96365; 97163; G0378; J0692; J2405